=== PATIENT | male | born 1940 | race Caucasian/White ===

== ENCOUNTER 2020-07-07 17:21 | Emergency (ER) | payer MEDICARE, SELFPAY ==
[2020-07-07 17:28] VITALS: BP 147/65; PULSE 53; RESP 16; TEMP 36.7; O2SAT 98
--- NOTE | 2020-07-07 17:39 | ED.EYEPROB ---
HPI - Eye Problem General Chief complaint: Eye Problems Stated complaint: left eye red/draining Time Seen by Provider: 07/07/20 17:36 Source: patient and RN notes reviewed Mode of arrival: ambulatory Limitations: no limitations History of Present Illness HPI Narrative: 79-year-old male presents with concern for yellow drainage, redness to the left eye. Reports this morning his eye was crusted shut when he woke up. Reports mild irritation, denies pain, foreign body, vision changes MD chief complaint: eye redness Related Data Home Medications Medication Instructions Recorded Confirmed amiodarone 100 mg PO DAILY 07/07/20 07/07/20 amlodipine 5 mg PO DAILY 07/07/20 07/07/20 apixaban [Eliquis] 2.5 mg PO BID 07/07/20 07/07/20 atorvastatin 80 mg PO DAILY 07/07/20 07/07/20 carvedilol 25 mg PO BID 07/07/20 07/07/20 [id number]-[id number]-dha [Adult 1 tablet PO DAILY 07/07/20 07/07/20 [place] Plus DHA] cholecalciferol (vitamin D3) 125 mcg PO DAILY 07/07/20 07/07/20 cinnamon bark [Cinnamon] 500 mg PO DAILY 07/07/20 07/07/20 clopidogrel 75 mg PO DAILY 07/07/20 07/07/20 ezetimibe 10 mg PO DAILY 07/07/20 07/07/20 fenofibrate 160 mg PO DAILY 07/07/20 07/07/20 gabapentin 600 mg PO TID 07/07/20 07/07/20 hydrochlorothiazide 50 mg PO DAILY 07/07/20 07/07/20 levothyroxine 137 mcg PO DAILY 07/07/20 07/07/20 modafinil 100 mg PO QAM 07/07/20 07/07/20 nitroglycerin 0.4 mg SUBLINGUAL Q5-15M PRN 07/07/20 07/07/20 tamsulosin 0.4 mg PO BID 07/07/20 07/07/20 tramadol 50 mg PO Q6H PRN 07/07/20 07/07/20 Allergies Allergy/AdvReac Type Severity Reaction Status Date / Time No Known Allergies Allergy Verified 07/07/20 17:39 Review of Systems Review of Systems: Narrative: CONSTITUTIONAL: Denies malaise, chills, sweats, or fever. EYES: Denies visual changes. Reports left eye redness, irritation, purulent discharge. ENT: Denies rhinorrhea, congestion, sinus pain, otalgia or sore throat. SKIN: Denies rash or itching. All systems reviewed & are unremarkable except as noted in HPI and below PMFSH Comments At time of signature, agree with nursing past medical, surgical, social and family history. There is no relevant family history pertinent to the presenting complaint Exam Narrative: Exam Narrative: GENERAL: Well-appearing, well-nourished, and in no acute distress. HEAD: Normocephalic, atraumatic. EYES: PERRLA and EOMI. right conjunctivae and sclera clear, left eye conjunctivae and sclera injected with purulent drainage ENT: Mucous membranes moist. NECK: Supple. CHEST: No respiratory distress. Speaks in full sentences. HEART: Regular rate and rhythm. SKIN: Warm, dry, no rash. NEURO: Alert and oriented x3. PSYCH: Normal mood and affect Course Course Emergency Course: Patient is aware of diagnosis, understands and agrees to treatment plan. Anticipatory guidance given. Patient agrees to follow-up as directed and is aware of reasons to seek care at the emergency department. Portions of this record may have been created with voice recognition software Vital Signs Vital signs: Vital Signs Temperature 98.0 F 07/07/20 17:28 Pulse Rate 53 L 07/07/20 17:28 Respiratory Rate 16 07/07/20 17:28 Blood Pressure 147/65 H 07/07/20 17:28 Pulse Oximetry 98 07/07/20 17:28 Temperature 98.0 F 07/07/20 17:40 Pulse Rate 53 L 07/07/20 17:40 Respiratory Rate 16 07/07/20 17:40 Blood Pressure 147/65 H 07/07/20 17:40 Pulse Oximetry 98 07/07/20 17:40 Reviewed. Patient has history of hypertension MDM - Eye Problem MDM Narrative Medical decision making narrative: Consideration of the following conditions may be warranted for the presenting problem, they are not final diagnoses: Bacterial conjunctivitis, allergic conjunctivitis, viral conjunctivitis, foreign body, blepharitis, chalazion, hordeolum, corneal abrasion. Exam findings show no acute concerns or changes; patient is non-toxic appearing and is in no distress. Patient is appro
[2020-07-07 17:40] VITALS: BP 147/65; PULSE 53; RESP 16; TEMP 36.7; O2SAT 98
== END 2020-07-07 17:50 | disposition home or self-care (01) ==
PROVIDERS: Emergency Provider Nurse Practitioner; PCP Family Medicine
DX: H10.9 Unspecified conjunctivitis (principal); I25.10 Atherosclerotic heart disease of native coronary artery without angina pectoris; Z95.5 Presence of coronary angioplasty implant and graft; E78.00 Pure hypercholesterolemia, unspecified; I10 Essential (primary) hypertension; I25.2 Old myocardial infarction; E03.9 Hypothyroidism, unspecified
CPT/HCPCS: 99213; G0463

== ENCOUNTER 2022-05-24 15:26 | Inpatient (IN) | payer MEDICARE, SELFPAY ==
--- NOTE | 2022-05-19 08:30 | PC.NURSE ---
Report to the Outpatient Waiting Room, entrance under the green pavilion located off [facility], at time _0730 on date _05/24/22 . OR Time: _929 . Time changes happen often and if your time is changed the preop area will call you the afternoon before. - You and your visitor will be asked to self-screen and do not enter if you have any COVID symptoms. - Only one visitor and NO children visitors are allowed at this time. - The patient visitor is requested to leave or wait in car when not with patient due to restrictions. - A mask is required within the hospital. Patients may have clear liquids (water, carbonated beverages, clear teas, apple juice) until 3 hours prior to surgery with a maximum of 20 ounces. - No food from midnight until time of surgery - Infants may have breast milk until 4 hours before surgery, formula 6 hours prior to surgery. - Children will be allowed to drink immediately following surgery. If applicable, please bring a bottle or sippy cup to assist with drinking. Juice, water, soda, and popsicles are readily available. For infants on formula, please bring formula the day of surgery. Pacifiers are allowed. Take the following medications with a SIP of water the morning of surgery: _AMIODARONE,AMLODIPINE,CARVEDILOL,,GABAPENTIN,LEVOTHYROXINE, Medications to discontinue per physician _PT STATES HOLD_CLOPIDOGREL AND WARFARIN__7 DAYS PRE OP PER DR EDWARDS Date to take last dose 05/16/22 Please no make-up, nail qatari, hairspray, perfume, deodorant, or body powder the day of surgery. No jewelry (including any body piercings) or valuables the day of surgery, leave them at home. Please take a shower or bath the night before, or the morning of, surgery with an antibacterial soap. Wear comfortable, loose fitting clothing. Children are encouraged to wear pajamas. - Jewelry must be removed prior to entering the operating room. Rings and piercings that are not removed may be cut off. - The hospital will not accept responsibility for valuables. - Please leave all valuables, including medications, at home the day of surgery. If you are going home after surgery, a licensed local [place] truck driver must drive you home. - NO public transportation without another adult. - We recommend that an adult stay with you for 24 hours following discharge. - We also recommend that you do not drive, make important decision, drink alcoholic beverages, or take any drugs that were not prescribed by your health care provider for at least 24 hours after your discharge time. For Pediatric surgeries, we recommend two adults accompany the child home (only one inside the building at this time). Follow any additional instructions given to you from your surgeon. If you or anyone in your household have experienced Covid symptoms in the past week, please notify your surgeon or the nurse liaison at the phone number below for possible testing. Telephone instructions given to _PATIENT and asked if any additional questions and then verbalized understanding. Patient advised to call surgeon office or pre surgery nurse liaison [phone] if any additional questions.
[2022-05-19 08:46] VITALS: BMI 35.9
--- NOTE | 2022-05-23 12:23 | WPDANESEPPF ---
Anes - Initial Pre Proc Eval Procedure: Operation Date: 05/24/22 09:30 Proposed Procedures p Posterior Cervical Decompression with Fusion C3-4, C4-5, C5-6, C6-7 - Gracie Manzo MD Date/Time: 05/23/22 12:23 Surgeon: Gracie Manzo MD Pre Op Diagnosis: cervical stenosis Patient Data Age: 81 Gender: M Height: 1.78 m Weight: 113.4 kg Allergies Allergy/AdvReac Type Severity Reaction Status Date / Time niacin AdvReac Severe Redness of Verified 05/24/22 08:13 Skin/BURNING OF THE SKIN Home Medications Medication Instructions Recorded Confirmed Type amiodarone 100 mg tablet 100 mg PO DAILY 07/07/20 05/24/22 History amlodipine 5 mg tablet 5 mg PO DAILY 07/07/20 05/24/22 History atorvastatin 80 mg tablet 80 mg PO DAILY 07/07/20 05/24/22 History carvedilol 25 mg tablet 25 mg PO BID 07/07/20 05/24/22 History clopidogrel 75 mg tablet 75 mg PO DAILY 07/07/20 05/24/22 History ezetimibe 10 mg tablet 10 mg PO DAILY 07/07/20 05/24/22 History fenofibrate 160 mg tablet 160 mg PO DAILY 07/07/20 05/24/22 History gabapentin 600 mg tablet 600 mg PO TID 07/07/20 05/24/22 History levothyroxine 137 mcg tablet 137 mcg PO DAILY 07/07/20 05/24/22 History nitroglycerin 0.4 mg sublingual 0.4 mg sublingual Q5-15M PRN Chest 07/07/20 05/19/22 History tablet Pain polymyxin B sulfate 10,000 1 drp LEFT EYE Q4H 7 days #10 mL 07/07/20 05/24/22 Rx unit-trimethoprim 1 mg/mL eye drops (Polytrim) tamsulosin 0.4 mg capsule 0.4 mg PO BID 07/07/20 05/24/22 History tramadol 50 mg tablet 50 mg PO Q6H PRN Pain 07/07/20 05/19/22 History furosemide 40 mg tablet 40 mg PO DAILY 05/19/22 05/19/22 History isosorbide mononitrate 30 mg 30 mg PO HS 05/19/22 05/24/22 History tablet,extended release 24 hr warfarin 5 mg tablet 3.5 mg PO HS 05/19/22 05/24/22 History Patient hx anesthesia problems: none Family hx anesthesia problems: none Results Review: All pre-operative results and documents have been reviewed as part of the pre-operative evaluation. [facility] Past Medical History Medical History (Updated 05/23/22 @ 12:25 by Josue Mathias MD) Arrhythmia Arthritis Atrial fibrillation CAD (coronary artery disease) Diabetes High cholesterol Hx of myocardial infarction Hyperlipidemia Hypertension Obesity Sleep apnea Surgical History Surgical History (Updated 05/23/22 @ 12:25 by Josue Mathias MD) H/O neck surgery H/O shoulder surgery History of appendectomy History of coronary artery stent placement x3 2017 History of prostate surgery Family History Family History (Updated 03/31/22 @ 12:45 by Latoya Khan MA) Other Breast cancer Diabetes mellitus Heart disease Hypertension Social History Social History (Updated 03/31/22 @ 12:46 by Latoya Khan MA) Smoking status: Never smoker Alcohol intake: never Substance use: never Substance use type: does not use Living arrangements: with family Spiritual care concerns: No Anes - Eval Final PreProcedure Day of Procedure 05/23/22 12:23 Patient weight: obese Heart: regular rate and rhythm Lungs: clear to auscultation and normal air movement Airway: Mallampati scale class II Neurological: alert and oriented Last oral intake: >/= 8 hours ASA classification: III Emergent: no Anesthetic plan: proceed Anesthesia type and monitoring: general ETT Results Review: All pre-operative results and documents have been reviewed as part of the pre-operative evaluation. Informed Consent: The patient's anesthetic plan and its attendant risks and benefits were discussed with the patient/family/POA. Questions were solicited and answers provided to the satisfaction of the patient/family/POA.
[2022-05-24] VITALS (16 sets, daily range): BP systolic 113–155; BP diastolic 51–85; PULSE 48–60; RESP 12–20; TEMP 36.1–36.9; O2SAT 95–100
--- NOTE | ~2022-05-24 | XR_ITS ---
EXAMINATION: XR fluoroscopy no charge DATE: 05/24/2022 11:00 CDT INDICATION: CERVICAL DECOMPRESSION . TECHNIQUE: 1 fluoroscopic image of the cervical spine were obtained during cervical decompression per formed by the surgeon. I was not present in the operating room. Fluoroscopy exposure time was 8 secon ds. Air Kerma 3.0877 mGy. DAP 0.0612 mGym2 COMPARISON: Outside MR 03/17/2022 FINDINGS: A single lateral intraoperative view demonstrates partial visualization of posterior cervical fusion hardware. IMPRESSION: Fluoroscopic documentation of cervical decompression. Please refer to the operative note for complete procedural details . Reviewed, dictated and finalized at location K. IMPRESSION: Fluoroscopic documentation of cervical decompression. Please refer to the opera tive note for complete procedural details .
[2022-05-24 08:55] LABS: INR 1.2
[2022-05-24 08:56] LABS: Partial Thromboplastin Time 29.9 SECONDS (22.3-36.8)
--- NOTE | 2022-05-24 09:52 | PM.IMHP ---
H&P: HPI History of Present Illness Date/Time: 05/24/22 09:52 Chief Complaint: cervical stenosis with myelopathy Narrative: Jaswant Clay is a very pleasant 81-year-old male who presents at the request of Dr. Villanueva as well as Dr. Levy? with progressive difficulties of subjective weakness and falls. Mr. Clay has a remote history of an anterior cervical diskectomy with fusion from C5-C7, performed in 1994 for cervical herniated disc.? He also has a known history of lumbar stenosis and a history of a hospitalization at [facility] approximately 5 years ago.? The patient states that he underwent an epidural steroid injection for lumbar stenosis at that time.? He has had some mild chronic right lower extremity weakness the dates at least until that time. Over the past 6 months, however, the patient has noted progressive difficulties with subjective weakness in his lower extremities, balance difficulties, as well as difficulties with neck pain, and difficulties with dexterity.? He has had multiple falls including a recent fall where he sustained a right shoulder injury.? The patient does describe some pain in his low back with radiation to the buttocks and hips.? His difficulty with balance, his difficulties with weakness, and is concern for falls, although progressive over the past 6 months, however, are his much more limiting complaints. Mr. Clay has undergone MRI of the cervical spine performed in the [facility] system ([facility]) on March 17, 2022 that shows changes from a prior cervical fusion from C5-C7 with solid fusion across C5-C7.? There is some residual disc osteophyte complex at the C5-6 level that contributes to moderate left lateral recess stenosis but no siginficant central stenosis. At C3-4 and C4-5 however there are disc bulges as well as dorsal ligamentous hypertrophy that contribute to severe central stenosis.? There is mild spinal cord compression but no cord signal change.? Lumbar MR imaging performed on February 22, 2022 shows multilevel spondylotic changes.? There is disc desiccation at L2-3, L3-4, L4-5 and L5-S1 with loss of disc space height most proounced at L5-S1 but present at all levels.? These changes along with facet and ligamentous hypertrophy as well as disc bulges ventrally contribute to severe spinal stenosis at L3-4 and L4-5.? At the L2-3 level, thse changes as well as epidural lipomatosis contribute to moderate central stenosis.? At all other levels above and below L2-L5 there is no greater than mild central or neuroforaminal stenosis.? At the L4-5 level there is a slight grade I listhesis on the supine MRI Mr. Clay has previously participated in physical therapy.? More recently he has had physical therapy focusing on his lumbar spine for approximately 2 months.? He does not feel that this is given much benefit.? He has recently undergone an evaluation of his right shoulder.? He had a right shoulder injection and is participating in physical therapy for the shoulder.? He feels that the range of motion is markedly improved with respect to his shoulder since his fall.? He also has a history of left knee arthritis and has given consideration for a left knee replacement.? It was recommended, however, with his balance difficulties, that he have his spine evaluated and treated prior to any consideration of joint replacement Given the findings of cervical stenosis above th patient's prior fusion as well as clinical symtpoms consistent with cervical myelopathy, we discussed pursuit of surgery. The patient presents today for this operation. In the interim since our March 2022 visit, the patient sustained another fall and subsequntly had a cellulitis of the left upper extremity. This has been treated with a course of antibiotics and has resolved. The patient has been cleared by his cardiology and primary care doctors and has been off of warfarin as well as Plavix for > 1 week. He presents for posterior cervical decompression and fusion C3-C7. aJswant presents
--- NOTE | 2022-05-24 09:58 | WPDHPUPDATE1 ---
History and Physical Update Update Date/Time: 05/24/22 09:58 History and Physical has been reviewed, including an updated exam of the patient. There are NO changes in the patient's condition. The patient has been treated for a cellulitis of the left upper extremity since our office visit but this has resolved. Risks, benefits, and alternatives have been discussed and questions answered. Patient agrees to proceed with procedure.
--- NOTE | 2022-05-24 10:37 | SUR.PREOP ---
0930-PT AWARE OF SURGEON DELAY. 1030-PT AWARE ADDITIONAL DELAY~1HR R/T EQUIPMENT PROCUREMENT.
[2022-05-24] MEDS: LACTATED RINGERS 1,000 ML 30 ML IV CONT ×2 (10:55→13:59)
[2022-05-24] MEDS: ceFAZolin 2 GM/D5W 50 ML 2 GM/50 ML BAG IVPB (11:04)
[2022-05-24] MEDS: LIDO 1%/EPINEPHRINE 1:100,000 50 ML VIAL 10 ML INFILTRATE (12:25)
[2022-05-24] MEDS: VANCOMYCIN HCL 1,000 MG VIAL 1000 MG TOPICAL (12:27)
--- NOTE | 2022-05-24 13:28 | W.PM.PROC2 ---
Procedure Note - Detailed Date of Procedure 05/24/22 Pre-op Diagnosis cervical stenosis Post-op Diagnosis Same Procedure Performed posterior cervical decompression and fusion C3-4 to C6-7 Surgeon Gracie Manzo MD Anesthesia General Indications Jaswant Clay is a very pleasant 81-year-old male with a past history of known cervical and lumbar spinal disease.? The patient has a past medical history significant for an anterior cervical diskectomy with fusion from C5-C7 nearly 30 years ago.? He also has known lumbar stenosis and chronic right lower extremity weakness associated with a remote lumbar epidural steroid injection The patient has had progressive symptoms of balance difficulties, difficulties with dexterity, weakness and frequent falls in the setting of adjacent stenosis at C3-4 and C4-5.? He has clinical symptoms and signs on examination consistent with a cervical myelopathy.? This history is complicated by the patient's chronic right lower extremity weakness which makes him particularly prone to falls.? He has sustained injury of the right shoulder from a fall within the last several months.? We have discussed at some length the management strategies for cervical stenosis with myelopathy.? I have explained that particularly in the setting of weakness with falls, and with the radiographic finding of severe cervical stenosis, I tend not to pursue nonsurgical measures unless surgery is medically contraindicated.? In his particular situation, the patient does have a history of cardiovascular disease, but if his primary care physician were to feel that he were a candidate for surgical intervention, we discussed that the best chance for minimization of further progression as well as any recovery of function would be to consider surgical intervention. We have discussed at some length the natural history of cervical myelopathy.? We have discussed that surgery is not a guarantee of zoroastrianism of function but offers the best chance for functional recovery.? We have discussed that a good outcome from surgery would be maintaining clinical symptoms at the current level.? The patient expresses understanding.? In his particular situation with cervical stenosis I would recommend consideration of surgery.? With patient's age at 81 and a prior anterior procedure I would advocate for a posterior cervical decompression with fusion from C3-4 through C6-7. We have discussed the indications as well as the risks of surgery including but not limited to bleeding infection CSF leak, numbness, weakness, paralysis, stroke, even .? We have obtained clearance from the patient's primary care physician as well as manager sap.? We discussed that he would need to be off of blood thinners including warfarin and Plavix for at least 1 week prior to surgery and for 2 weeks after surgery.? The patient expresses understanding and is inclined to proceed with surgery.? .? Description of Procedure The patient was brought into the operating room where general anesthesia was induced without complications.? A neutral position was used due to cervical stensis. Appropriate monitoring and access was achieved.? SSEP and MEP monitoring was obtained. the patient was turned into a prone position on the operating table.? The head was secured in a Sanchez skull clamp. All extremities were padded The sanchez clamp was secured to the table with the patient in a position. The C3-4 level was confirmed and identified using fluoroscopy.? The incision was planned and the site was prepped and draped sterilely.? A time out was performed. A linear incision was made using a #10 blade scalpel.? Dissection was carried down to the spinous process and the paraspinal muscle was dissected off of the lamina of C3, C4, C5, C6 and C7 using electrocautery.? Self retaining retractors were advanced.? A curette was placed at the C3-4 joint space and localization was confirmed with fluoroscopy. The facet complexes at C
[2022-05-24 14:56] LABS: Glucose Point of Care 153 mg/dl (65-105)
[2022-05-24] MEDS: fentaNYL CITRATE INJ (*CRX) 100 MCG/2 ML VIAL 25 MCG IV PUSH ×2 (15:07→15:18)
--- NOTE | 2022-05-24 15:47 | ADMGEN ---
This patient, Jaswant Clay, was admitted to Medical Room 246-01. Patient/family oriented to hospital policies and general routines including ID bracelet, bed and alarms, visiting hours, pain management, procedures, bathroom and other care routines, personal items, smoking policy, room service/diet, and visiting hours. Information on how to activate the Rapid Response Team has been discussed. Patient/Family are encouraged to report perceived risks to care and to ask questions if they do not understand what they are told or what they should do.
[2022-05-24] MEDS: KCL 20MEQ/0.9% SOD CHL 1,000 ML 100 ML IV CONT (16:17)
[2022-05-24 17:02] LABS: Glucose Point of Care 134 mg/dl (65-105)
[2022-05-24] MEDS: GABAPENTIN 300 MG CAPSULE 600 MG PO (18:28)
[2022-05-24] MEDS: TAMSULOSIN HCL 0.4 MG CAPSULE PO (20:53)
[2022-05-24] MEDS: DOCUSATE SODIUM 100 MG CAPSULE PO (20:53)
[2022-05-24] MEDS: ISOSORBIDE MONONITRATE 30 MG TAB.ER.24H PO (20:53)
[2022-05-24] MEDS: HYDROcodone/acetaminophen (*CRX) 10-325 MG TABLET 1 TAB PO (20:55)
[2022-05-24 21:02] LABS: Glucose Point of Care 117 mg/dl (65-105)
[2022-05-25] VITALS (8 sets, daily range): BP systolic 141–149; BP diastolic 56–79; PULSE 55–63; RESP 16–18; TEMP 36.3–36.9; O2SAT 96–100
[2022-05-25] MEDS: CYCLOBENZAPRINE HCL 10 MG TABLET PO ×2 (03:59→20:03)
[2022-05-25] MEDS: LEVOTHYROXINE SODIUM 112 MCG, LEVOTHYROXINE SODIUM 25 MCG 137 MCG PO (06:28)
[2022-05-25] MEDS: HYDROcodone/acetaminophen (*CRX) 10-325 MG TABLET 1 TAB PO (06:32)
[2022-05-25 08:13] LABS: Glucose Point of Care 139 mg/dl (65-105)
[2022-05-25] MEDS: FUROSEMIDE 40 MG TABLET PO (09:08)
[2022-05-25] MEDS: GABAPENTIN 300 MG CAPSULE 600 MG PO ×2 (09:08→17:08)
[2022-05-25] MEDS: DOCUSATE SODIUM 100 MG CAPSULE PO ×2 (09:08→20:03)
[2022-05-25] MEDS: amLODIPine BESYLATE 5 MG TABLET PO (09:08)
[2022-05-25] MEDS: ATORVASTATIN 40 MG TABLET 80 MG PO (09:08)
[2022-05-25] MEDS: AMIODARONE HCL 200 MG TABLET PO (09:09)
[2022-05-25] MEDS: carvediloL 25 MG TABLET PO ×2 (09:09→17:08)
[2022-05-25 13:03] LABS: Glucose Point of Care 177 mg/dl (65-105)
[2022-05-25] MEDS: HYDROcodone/acetaminophen (*CRX) 5-325 MG TABLET 1 TAB PO (15:08)
[2022-05-25] MEDS: KCL 20MEQ/0.9% SOD CHL 1,000 ML 100 ML IV CONT (17:18)
[2022-05-25 17:31] LABS: Glucose Point of Care 148 mg/dl (65-105)
[2022-05-25] MEDS: TAMSULOSIN HCL 0.4 MG CAPSULE PO (20:03)
[2022-05-25] MEDS: ISOSORBIDE MONONITRATE 30 MG TAB.ER.24H PO (20:03)
[2022-05-25 21:24] LABS: Glucose Point of Care 214 mg/dl (65-105)
--- NOTE | 2022-05-25 21:52 | WPDNEUROSGPN ---
Progress Note: A&P Assessment and Plan (1) Cervical stenosis of spinal canal: Code(s): M48.02 - Spinal stenosis, cervical region Status: Acute Plan Jaswant is doing well today but is having urinary issues with retention. We will place a Middleton catheter. I will consult urology tomorrow. He will continue with physical and occupational therapy and hopefully will be able to be discharged tomorrow or the next day if he is passing his milestones. Subjective Date/time seen: 05/25/22 21:52 Jaswant is postop day 1 status post cervical laminectomy and lateral mass instrumented fusion performed by Dr. Mcgill. He is doing well from standpoint of the operation. He has been ambulatory today with physical therapy. His greatest issue is that he is not urinating well. He has had this issue in the past and has had a TURP procedure. He is not having specific muscle group weakness of either the upper or lower extremities. He is not having bowel difficulty. Exam Neuro: Other: On current strength is normal the bilateral upper and lower extremities to direct confrontation. Sensation is intact to light touch throughout the upper and lower extremities. His dressing is clean dry and intact. Objective Data Vital Signs Vital Signs: Vital Signs - 24 hr 05/24/22 23:28 05/24/22 22:30 05/25/22 02:50 Temperature 98.1 F Pulse Rate 57 L 59 L 56 L Respiratory Rate 18 19 Blood Pressure 115/63 Pulse Oximetry 98 97 98 Oxygen Delivery CPAP CPAP 05/25/22 04:00 05/25/22 07:41 05/25/22 08:15 Temperature 98.2 F Pulse Rate 63 Respiratory Rate 18 Blood Pressure 149/79 H Pulse Oximetry 100 Oxygen Delivery Room Air Room Air 05/25/22 09:09 05/25/22 09:09 05/25/22 08:00 Temperature Pulse Rate 62 62 Respiratory Rate Blood Pressure Pulse Oximetry Oxygen Delivery Room Air 05/25/22 09:01 05/25/22 16:00 05/25/22 17:08 Temperature 97.3 F L 97.7 F Pulse Rate 61 58 L 59 L Respiratory Rate 16 16 Blood Pressure 143/63 H 141/60 H Pulse Oximetry 96 97 Oxygen Delivery 05/25/22 20:00 05/25/22 21:27 Temperature 98.5 F Pulse Rate 55 L Respiratory Rate 18 Blood Pressure 142/56 H Pulse Oximetry 98 Oxygen Delivery Room Air Intake/Output Intake/Output: Intake & Output 05/22/22 05/23/22 05/24/22 05/25/22 23:59 23:59 23:59 23:59 Intake Total 2170 1890 Output Total 855 120 Balance 1315 1770 Meds/Results Medications: Active Medications Generic Name Dose Route Start Last Admin Trade Name Freq PRN Reason Stop Dose Admin Hydrocodone Bitart/Acetaminophen 1 tab 05/24/22 15:26 05/25/22 15:08 Hydrocodone/Acetaminophen (*Crx) 5-325 Mg Tablet PO 1 tab Q4H PRN Administration Mild Pain (1-3) Hydrocodone Bitart/Acetaminophen 1 tab 05/24/22 15:26 05/25/22 06:32 Hydrocodone/Acetaminophen (*Crx) 10-325 Mg Tablet PO 1 tab Q4H PRN Administration Moderate Pain (4-6) Al Hydrox/Mg Hydrox/Simethicone 20 ml 05/24/22 15:26 Mag Hydrox/Al Hydrox/Simeth 30 Ml Udc PO Q4H PRN Indigestion/Heartburn Amiodarone HCl 200 mg 05/25/22 09:00 05/25/22 09:09 Amiodarone Hcl 200 Mg Tablet PO 200 mg DAILY JARRED Administration Amlodipine Besylate 5 mg 05/25/22 09:00 05/25/22 09:08 Amlodipine Besylate 5 Mg Tablet PO 5 mg DAILY JARRED Administration Atorvastatin Calcium 80 mg 05/25/22 09:00 05/25/22 09:08 Atorvastatin 40 Mg Tablet PO 80 mg DAILY JARRED Administration Bisacodyl 10 mg 05/24/22 15:26 Bisacodyl 10 Mg Suppository RECTAL DAILY PRN Constipation Carvedilol 25 mg 05/24/22 17:00 05/25/22 17:08 Carvedilol 25 Mg Tablet PO 25 mg BID JARRED Administration Cyclobenzaprine HCl 10 mg 05/24/22 15:26 05/25/22 20:03 Cyclobenzaprine Hcl 10 Mg Tablet PO 10 mg TID PRN Administration Muscle Spasms Dextrose 12.5 gm 05/24/22 15:26 Dextrose 50% 25 Gm/50 Ml Syringe IV PUSH PRN PRN
[2022-05-26] MEDS: HYDROcodone/acetaminophen (*CRX) 5-325 MG TABLET 1 TAB PO ×2 (02:33→10:16)
[2022-05-26 05:20] VITALS: BP 133/48; PULSE 63; RESP 18; TEMP 36.8; O2SAT 94
[2022-05-26] MEDS: LEVOTHYROXINE SODIUM 112 MCG, LEVOTHYROXINE SODIUM 25 MCG 137 MCG PO (05:42)
[2022-05-26 08:12] LABS: Glucose Point of Care 122 mg/dl (65-105)
[2022-05-26 10:08] LABS: Glucose Point of Care 177 mg/dl (65-105)
[2022-05-26] MEDS: FUROSEMIDE 40 MG TABLET PO (10:09)
[2022-05-26] MEDS: ATORVASTATIN 40 MG TABLET 80 MG PO (10:09)
[2022-05-26] MEDS: GABAPENTIN 300 MG CAPSULE 600 MG PO (10:09)
[2022-05-26 10:10] VITALS: PULSE 65
[2022-05-26] MEDS: amLODIPine BESYLATE 5 MG TABLET PO (10:10)
[2022-05-26] MEDS: carvediloL 25 MG TABLET PO (10:10)
[2022-05-26] MEDS: AMIODARONE HCL 200 MG TABLET PO (10:10)
[2022-05-26] MEDS: DOCUSATE SODIUM 100 MG CAPSULE PO (10:16)
[2022-05-26 12:08] LABS: Glucose Point of Care 133 mg/dl (65-105)
--- NOTE | 2022-05-26 12:12 | WPDNEUROSGPN ---
Progress Note: A&P Assessment and Plan (1) Cervical stenosis of spinal canal: Code(s): M48.02 - Spinal stenosis, cervical region Status: Acute Plan Neurologically stable post posterior cervical fusion Stable for d/c to home today Jim will need to return to office in 2 weeks for staple removal Subjective Date/time seen: 05/26/22 12:12 Review of Systems Review of Systems: Patient notes improved ROM of upper extremities Pain controlled Middleton placed yesterday with 1300 cc output Exam Narrative: Awake, alert oriented x 3 Speech CF LINDSEY EOMI Face= TML MAEW with good strength Dresssing CDI Objective Data Vital Signs Vital Signs: Vital Signs - 24 hr 05/25/22 16:00 05/25/22 17:08 05/25/22 20:00 Temperature 97.7 F Pulse Rate 58 L 59 L Respiratory Rate 16 Blood Pressure 141/60 H Pulse Oximetry 97 Oxygen Delivery Room Air 05/25/22 21:27 05/25/22 23:05 05/26/22 05:20 Temperature 98.5 F 98.2 F Pulse Rate 55 L 56 L 63 Respiratory Rate 18 18 18 Blood Pressure 142/56 H 133/48 L Pulse Oximetry 98 97 94 Oxygen Delivery CPAP 05/26/22 10:10 05/26/22 10:10 Temperature Pulse Rate 65 65 Respiratory Rate Blood Pressure Pulse Oximetry Oxygen Delivery Intake/Output Intake/Output: Intake & Output 05/23/22 05/24/22 05/25/22 05/26/22 23:59 23:59 23:59 23:59 Intake Total 2170 1940 540 Output Total 018 565 2220 Balance 1315 1820 -1660 Meds/Results Medications: Active Medications Generic Name Dose Route Start Last Admin Trade Name Freq PRN Reason Stop Dose Admin Hydrocodone Bitart/Acetaminophen 1 tab 05/24/22 15:26 05/26/22 10:16 Hydrocodone/Acetaminophen (*Crx) 5-325 Mg Tablet PO 1 tab Q4H PRN Administration Mild Pain (1-3) Hydrocodone Bitart/Acetaminophen 1 tab 05/24/22 15:26 05/25/22 06:32 Hydrocodone/Acetaminophen (*Crx) 10-325 Mg Tablet PO 1 tab Q4H PRN Administration Moderate Pain (4-6) Al Hydrox/Mg Hydrox/Simethicone 20 ml 05/24/22 15:26 Mag Hydrox/Al Hydrox/Simeth 30 Ml Udc PO Q4H PRN Indigestion/Heartburn Amiodarone HCl 200 mg 05/25/22 09:00 05/26/22 10:10 Amiodarone Hcl 200 Mg Tablet PO 200 mg DAILY JARRED Administration Amlodipine Besylate 5 mg 05/25/22 09:00 05/26/22 10:10 Amlodipine Besylate 5 Mg Tablet PO 5 mg DAILY JARRED Administration Atorvastatin Calcium 80 mg 05/25/22 09:00 05/26/22 10:09 Atorvastatin 40 Mg Tablet PO 80 mg DAILY JARRED Administration Bisacodyl 10 mg 05/24/22 15:26 Bisacodyl 10 Mg Suppository RECTAL DAILY PRN Constipation Carvedilol 25 mg 05/24/22 17:00 05/26/22 10:10 Carvedilol 25 Mg Tablet PO 25 mg BID JARRED Administration Cyclobenzaprine HCl 10 mg 05/24/22 15:26 05/25/22 20:03 Cyclobenzaprine Hcl 10 Mg Tablet PO 10 mg TID PRN Administration Muscle Spasms Dextrose 12.5 gm 05/24/22 15:26 Dextrose 50% 25 Gm/50 Ml Syringe IV PUSH PRN PRN Hypoglycemia Protocol Docusate Sodium 100 mg 05/24/22 21:00 05/26/22 10:16 Docusate Sodium 100 Mg Capsule PO 100 mg Q12HR JARRED Administration Furosemide 40 mg 05/25/22 09:00 05/26/22 10:09 Furosemide 40 Mg Tablet PO 40 mg DAILY JARRED Administration Gabapentin 600 mg 05/24/22 17:00 05/26/22 10:09 Gabapentin 300 Mg Capsule PO 600 mg BID JARRED Administration Glucagon 1 mg 05/24/22 15:26 Glucagon For Inj 1 Mg Vial IM PRN PRN Hypoglycemia Protocol Glucose 15 gm 05/24/22 15:26 Glucose Oral Gel 15 Gm Of Glucse In 37.5 Gm Tube PO PRN PRN Hypoglycemia Protocol Cefazolin Sodium 1 gm in 50 mls @ 100 mls/hr 05/24/22 19:00 05/26/22 10:11 Ancef 1 Gm/D5w 50 Ml Pm IVPB 100 mls/hr Q8H JARRED Administration Potassium Chloride/Sodium Chloride 1,000 mls @ 100 mls/hr 05/24/22 16:00 05/25/22 17:18 Kcl 20 Meq/Ns IV CONT 30 mls/hr .Q10H JARRED Infusion Dextrose 1,000 mls
--- NOTE | 2022-05-26 12:19 | PM.DS ---
DS: Admitting Diagnosis Discharge Date 05/26/2022 Admitting Diagnosis cervical spondylosis DS: Discharge Diagnosis Discharge Diagnosis (1) Cervical stenosis of spinal canal: Code(s): M48.02 - Spinal stenosis, cervical region Status: Acute DS: Summary Hospital Course Reason for hospitalization: Patient was admitted to the hospital for an elective posterior cervical decompression and fusion. The patient tolerated the surgery well without complications. He did have some postoperative urinary retention a Middleton catheter was placed overnight. He will follow up with his urologist for a voiding trial. He was felt to be stable for discharge to home on postoperative day 2 Hospital Course: Patient tolerated the surgery well without complications and was stable for discharge home on postoperative day 2 Time Spent with Patient Time attestation: Total time spent providing and/or coordinating discharge services: 30 minutes DS: Data Data Completed and Pending Labs on day of discharge: Labs from last 24 hours 05/26/22 05/26/22 05/26/22 11:53 10:04 07:56 POC Capillary Glucose 133 H 177 H 122 H 05/25/22 05/25/22 05/25/22 20:00 17:25 13:01 POC Capillary Glucose 214 H 148 H 177 H Discharge Plan Discharge Attending physician on discharge: Gracie aMnzo Discharging Clinician: Gracie Manzo Anticipated Discharge Date/Time: 05/26/22 14:14 Patient Disposition: Home, Self-Care Activity: may shower Diet: as tolerated Wound Care Instructions: follow printed instructions, incision open to air and other - see discharge instructions Discharge Instructions: Patient to remove dressing in AM tomorrow then leave wound open to air Follow-up/Referrals: King Sexton MD [Physician] - 1 Week (for voiding trial - urinary retention) Gracie Manzo MD [Physician] - 2 Weeks (for staple removal) Discharge Medications: New hydrocodone-acetaminophen 5-325 mg tablet 1 tablet PO Q4H Qty: 30 0RF cyclobenzaprine 10 mg tablet 10 mg PO TID PRN (Reason: muscle spasm) Qty: 20 0RF Continued levothyroxine 137 mcg Tablet 137 mcg PO DAILY atorvastatin 80 mg Tablet 80 mg PO DAILY carvedilol 25 mg Tablet 25 mg PO BID gabapentin 600 mg Tablet 600 mg PO TID Label Comments: TAKES BID amlodipine 5 mg Tablet 5 mg PO DAILY ezetimibe 10 mg Tablet 10 mg PO DAILY amiodarone 100 mg Tablet 100 mg PO DAILY Label Comments: 200 MG ONE TAB IN AM fenofibrate 160 mg Tablet 160 mg PO DAILY polymyxin B sulf-trimethoprim [Polytrim] 10,000 unit- 1 mg/mL drops 1 drp LEFTEYE Q4H 7 Days Qty: 10 0RF Label Comments: BOTH EYES ONE DROP BID Rx Instructions: while awake; do not exceed 6 doses in 24 hours nitroglycerin 0.4 mg Tablet, Sublingual 0.4 mg SUBLINGUAL Q5-15M PRN (Reason: Chest Pain) tamsulosin 0.4 mg Capsule 0.4 mg PO BID Label Comments: ONE TAB AT HS furosemide 40 mg tablet 40 mg PO DAILY isosorbide mononitrate 30 mg tablet extended release 24 hr 30 mg PO HS Held clopidogrel 75 mg Tablet 75 mg PO DAILY Hold Instructions: Resume on 06/09/22. warfarin 5 mg tablet 3.5 mg PO HS Hold Instructions: Resume on 06/09/22. Discontinued tramadol 50 mg Tablet 50 mg PO Q6H PRN (Reason: Pain) Date of admission: 05/25/22 18:53 Primary Care Provider: Riddhi,Chase Russell Admitting Provider: Gracie Manzo Attending physician on admission: Gracie Manzo Condition: Stable
[2022-05-26 14:00] VITALS: BP 103/53; PULSE 55; RESP 18; TEMP 36.6; O2SAT 95
== END 2022-05-26 14:40 | disposition home health service (06) | DRG 473 ==
LOC: ANH2MED 16:26 → ANHSURGERY 06-14 15:41 → ANH2MED 06-26 06:24
PROVIDERS: Anesthesiology; Admitting Provider Neurological Surgery; PCP Family Medicine; Visit Provider Neurological Surgery
PROC: 0RG2071 Fusion of 2 or more Cervical Vertebral Joints with Autologous Tissue Substitute, Posterior Approach, Posterior Column, Open Approach (ICD-10-PCS; CPT 63045; principal; 2022-05-24 09:30)
DX: M48.02 Spinal stenosis, cervical region (principal); R29.6 Repeated falls; R53.1 Weakness; R33.9 Retention of urine, unspecified; I48.91 Unspecified atrial fibrillation; I25.10 Atherosclerotic heart disease of native coronary artery without angina pectoris; Z95.5 Presence of coronary angioplasty implant and graft; E11.9 Type 2 diabetes mellitus without complications; E78.00 Pure hypercholesterolemia, unspecified; I25.2 Old myocardial infarction; E78.5 Hyperlipidemia, unspecified; I10 Essential (primary) hypertension; G47.30 Sleep apnea, unspecified; E66.9 Obesity, unspecified; Z68.35 Body mass index [BMI] 35.0-35.9, adult; Z98.1 Arthrodesis status; Z79.01 Long term (current) use of anticoagulants; Z79.02 Long term (current) use of antithrombotics/antiplatelets; Z79.891 Long term (current) use of opiate analgesic; Z79.899 Other long term (current) drug therapy; Z83.3 Family history of diabetes mellitus; Z82.49 Family history of ischemic heart disease and other diseases of the circulatory system
CPT/HCPCS: 63045; 63048 ×2; 22600; 22614 ×3; 22842; 36415; 82948; 85610; 85730; 86850; 86900; 86901; 97116; 97161; 97165; 97530; 97535; 99199; A9270; C9290; G0378; J0330; J0690; J1100; J2250; J2405; J2704; J3010; J3370; J3480; J7120

== ENCOUNTER 2022-09-08 09:42 | Outpatient (CLI) | payer MEDICARE, SELFPAY ==
--- NOTE | ~2022-09-08 | XR_ITS ---
XR_[id number]_CR DATE: 09/08/2022 10:11 INDICATION: C3-6 fusion 2 months ago TECHNIQUE: AP, lateral and swimmer views COMPARISON: None FINDINGS: Status post superior spinal fusion at C3-C6 by means of bilateral pedicle screws and rods. No hardware failure or displacement is detected. There is straightening and levoscoliosis of the cervical spine. C1 and C2 are normally aligned and the odontoid process is intact. Moderate degenerative disc disease at C3-4. Severe degenerative disc disease at C4-5. There is evidence of anterior fusion at the C5-C7 vertebral bodies. No fracture or dislocation is evident. No prevertebral soft tissue swelling or emphysema. Diffuse idiopathic skeletal hyperostosis of the thoracic spine. Osteopenia. IMPRESSION: Status post posterior surgical fusion at C3-C6 There is fusion of the C5-C7 vertebral bodies Moderately severe degenerative disc disease at C3-4, severe degenerative disc disease at C4-5 Reviewed, dictated and finalized at [facility]. Reviewed, dictated and finalized at [facility]. N [employer] IMPRESSION: Status post posterior surgical fusion at C3-C6 There is fusion of the C5-C7 vertebral bodies Moderately severe degenerative disc disease at C3-4, severe degenerative disc d isease at C4-5
== END 2022-09-08 09:43 | disposition home or self-care (01) ==
PROVIDERS: PCP Family Medicine; Visit Provider Neurological Surgery
DX: Z98.1 Arthrodesis status (principal); M50.321 Other cervical disc degeneration at C4-C5 level
CPT/HCPCS: 72040

== ENCOUNTER 2023-06-22 08:52 | Outpatient (CLI) | payer MEDICARE, SELFPAY ==
--- NOTE | ~2023-06-22 | XR_ITS ---
[id number]_CR DATE: 06/22/2023 09:27 INDICATION: Lower posterior neck pain. TECHNIQUE: AP, open-mouth, lateral and swimmer views COMPARISON: 09/08/2022 cervical spine FINDINGS: Again noted is posterior surgical fusion at C3-C6 with bilateral pedicle screws and rods. There is straightening and levoscoliosis of the cervical spine. C1 and C2 are normally aligned and the odontoid process is intact. There is moderately severe degenerative disc disease at C3-4 and severe degenerative disease at C4-5. There is apparent fusion at C5-7. No fracture or dislocation or locked facet or prevertebral soft tissue swelling is detected. IMPRESSION: No significant change since 09/08/2022 Reviewed, dictated and finalized at [facility]. Reviewed, dictated and finalized at [facility].
== END 2023-06-22 08:53 | disposition home or self-care (01) ==
PROVIDERS: PCP Family Medicine; Visit Provider Neurological Surgery
DX: M48.02 Spinal stenosis, cervical region (principal); Z98.890 Other specified postprocedural states
CPT/HCPCS: 72040